=== PATIENT | male | born 1995 | race Caucasian/White ===

== ENCOUNTER 2017-03-25 16:12 | Emergency (ER) | payer OTHER ==
[2017-03-25] MEDS ORDERED: ALLEGRA ALLERG180 M1 PO (17:22)
[2017-03-25] MEDS ORDERED: KEFLEX500 M4 PO (18:14)
== END 2017-03-25 18:20 ==
LOC: EDMED 16:12
PROC: 0HQFXZZ Repair Right Hand Skin, External Approach (ICD-10-PCS; principal; 2017-03-25)
DX: S66.320A Laceration of extensor muscle, fascia and tendon of right index finger at wrist and hand level, initial encounter (principal); F17.210 Nicotine dependence, cigarettes, uncomplicated; W20.8XXA Other cause of strike by thrown, projected or falling object, initial encounter; Y92.69 Other specified industrial and construction area as the place of occurrence of the external cause; Y99.0 Civilian activity done for income or pay